=== PATIENT | male | born 1965 | race Two or more races ===

== ENCOUNTER 2020-04-26 22:54 | Emergency (ER) | payer MEDICAID ==
[~2020-04-26] VITALS: Ht 175.3 cm; Wt 72.6 kg
[2020-04-26 23:13] VITALS: BP 120/78
[2020-04-26] MEDS ORDERED: BENADRYL25 MG ORAL (23:21)
[2020-04-26] MEDS ORDERED: PREDNISONE20 MG ORAL (23:21)
--- NOTE | 2020-04-26 23:21 | Emergency Room Report ---
History of Present Illness General Chief Complaint: Skin Rash/Abscess Source: Patient Present Illness HPI This is a 54-year-old male with a psychiatric history. He presents with chief complaint of hives. Onset for last 3 days. Is localized to the upper torso neck and back area. Unknown etiology. Itching. Worse with scratching. Better with not scratching. No new medicine or food. No respiratory issue. Allergies: Coded Allergies: No Known Allergies (Unverified , 04/26/20) COVID-19 Screening Contact w/high risk pt: No Experienced COVID-19 symptoms?: No COVID-19 Testing performed [employer]ELTING [employer]: No Patient History Past Medical History: see triage record, old chart reviewed Past Surgical History: none Pertinent Family History: other Social History: Reports: smoking Immunizations: other Reviewed Nursing Documentation: PMH: Agreed; PSxH: Agreed Nursing Documentation-PMH Hx Cardiac Problems: No Hx Hypertension: No Hx Pacemaker: No Hx Asthma: No Hx COPD: No Hx Diabetes: No Hx Cancer: No Hx Gastrointestinal Problems: No Hx Dialysis: No History Of Psychiatric Problem: Yes Hx Neurological Problems: No Hx Cerebrovascular Accident: No Hx Seizures: No Review of Systems Eye: Denies: eye pain, blurred vision ENT: Denies: ear pain, nose congestion, throat swelling Respiratory: Denies: cough, shortness of breath Cardiovascular: Denies: chest pain, palpitations Gastrointestinal: Denies: abdominal pain, diarrhea, nausea, vomiting Musculoskeletal: Denies: back pain, joint pain Skin: Reports: rash Neurological: Denies: headache, numbness Endocrine: Denies: increased thirst, increased urine Hematologic/Lymphatic: Denies: easy bruising All Other Systems: negative except mentioned in HPI Physical Exam Vital Signs Date Time Temp Pulse Resp B/P (MAP) Pulse Ox O2 Delivery O2 Flow Rate FiO2 04/26/20 23:05 98.4 65 20 120/78 (92) 100 Room Air Vitals normal Sp02 EP Interpretation: reviewed, normal General Appearance: well appearing, no apparent distress, alert Head: normocephalic, atraumatic Eyes: bilateral eye PERRL, bilateral eye EOMI ENT: hearing grossly normal, normal pharynx Neck: full range of motion, supple, no meningismus Respiratory: chest non-tender, lungs clear, normal breath sounds Cardiovascular #1: regular rate, rhythm, no murmur Gastrointestinal: normal bowel sounds, non tender, no mass, no organomegaly, no bruit, non-distended Musculoskeletal: back normal, normal range of motion, gait/station normal Psychiatric: mood/affect normal Skin: other - Scattered urticarial rash on his neck upper back and upper chest area. Medical Decision Making Diagnostic Impression: Primary Impression: Allergies Qualified Codes: T78.40XA - Allergy, unspecified, initial encounter ER Course This patient presents with an allergic reaction. I see no evidence of infection or. No evidence of cellulitis or scabies. Last Vital Signs Date Time Temp Pulse Resp B/P (MAP) Pulse Ox O2 Delivery O2 Flow Rate FiO2 04/26/20 23:13 98.4 20 120/78 100 Room Air 04/26/20 23:05 65 Status: improved Disposition: HOME, SELF-CARE Condition: Stable Scripts Prednisone* (PREDNISONE*) 20 Mg Tablet 40 MG ORAL DAILY, #6 TAB Prov: Andrew Lang MD 04/26/20 Diphenhydramine Hcl* (BENADRYL*) 25 Mg Capsule 50 MG ORAL Q6H PRN for Itching, #30 CAP Prov: Andrew Lang MD 04/26/20 Additional Instructions: Follow-up with your doctor in 7 days. Return if symptoms worsen. Andrew Lang MD Apr 26, 2020 23:21
== END 2020-04-26 23:30 | disposition home or self-care (01) ==
LOC: EMR 23:22
DX: T78.40XA Allergy, unspecified, initial encounter (principal); X58.XXXA Exposure to other specified factors, initial encounter; Y92.9 Unspecified place or not applicable
CPT/HCPCS: J7512; Z7502; 99282